=== PATIENT | male | born 1980 | race Caucasian/White ===

== ENCOUNTER 2019-09-29 12:15 | Emergency (ER) | payer MEDICAID, SELFPAY | END 2019-09-29 14:18 | disposition admitted as inpatient to this hospital (09) | LOC: ER 10-03 12:59 | PROVIDERS: Emergency Provider Emergency Medicine | DX: F23 Brief psychotic disorder (principal) | CPT/HCPCS: 99281; 99285 ==

== ENCOUNTER 2019-09-29 12:15 | Inpatient (IN) | payer MEDICAID, SELFPAY ==
[2019-09-29 12:17] VITALS: BP 132/68; PULSE 72; RESP 18; TEMP 36.9; O2SAT 99; BMI 31.2
--- NOTE | 2019-09-29 12:18 | ED_ITS ---
HPI - Psych General: Stated Complaint: PSYCH EVAL Time Seen by Provider: 09/29/19 12:16 Source: patient and EMS Mode of arrival: EMS Limitations: no limitations History of Present Illness: HPI Narrative: 38-year-old male with a history of schizophrenia who is brought here from [place] for admission. Patient seen at [place] and medically cleared there and placed under 96 and was accepted here for admission. Patient seen in the ER to clear for coronavirus. Patient has been having hallucinations but denies any suicidality or homicidality. Patient is currently cooperative Associated symptoms: Reports auditory hallucinations Review of Systems Const: Denies: fever(s), chills, body aches or change in appetite Eyes: Denies: blurry vision or eye discomfort ENMT: Denies: throat pain or dental pain Card: Denies: chest pain Resp: Denies: dyspnea GI: Denies: abdominal pain, nausea, vomiting or diarrhea : Denies: dysuria Musc: Denies: neck pain or back pain Skin/Breast: Denies: rash Neuro: Denies: headache(s) Psych: Reports: paranoia and auditory hallucinations Tonio/Lymph: Denies: easy bruising All/Imm: Denies: urticaria Physical Exam Const: COMMON NORMALS: no acute distress, patient oriented x3 and healthy appearing HENMT: COMMON NORMALS: normocephalic and atraumatic HEAD & SCALP: normocephalic and atraumatic Eye: COMMON NORMALS: Equal, round and reactive pupils present and EOMs intact bilaterally PUPIL: Yes Equal, round and reactive pupils present Neck/C-Spine: COMMON NORMALS: full ROM and supple Chest: COMMONS NORMALS: normal inspection of the chest and normal palpation of entire chest wall Resp: COMMON NORMALS: normal respiratory effort, No retractions, No use of accessory muscles and clear to auscultation bilaterally AUSCULTATION: clear to auscultation bilaterally Cardio: COMMON NORMALS: regular rate, regular rhythm and No murmurs present (Cardio) RATE: regular rate RHYTHM: regular rhythm GI: COMMON NORMALS: Normal to inspection, nondistended, normoactive bowel sounds present, Soft to palpation, non-tender and no masses PALPATION: Yes Soft to palpation Extremity: COMMON NORMALS: normal to inspection and full ROM Neuro: COMMON NORMALS: patient oriented x3, moves all extremities and no focal motor deficits Psych: COMMON NORMALS: mental status grossly normal and cooperative THOUGHT PROCESS: disorganized THOUGHT CONTENT: Yes Hallucination(s) present Skin: COMMON NORMALS: no rashes or lesions noted and no wounds GENERAL SKIN EXAM: no rashes or lesions noted MDM - Psych MDM Narrative: Medical decision making narrative: Presents here from [place] for direct admit to psych unit. Patient is cleared here in the ER and has no signs of coronavirus. Patient stable for admission at this time Discharge Plan Discharge Patient Disposition: Admitted As Inpatient Clinical Impression: Acute psychosis Condition: Stable Coding Level of Care Code ED Computer Technology Trainer for Ese Mosher
[2019-09-29 13:05] VITALS: BP 105/63; PULSE 102; RESP 14; O2SAT 95
[2019-09-29 13:18] VITALS: BP 105/63; PULSE 102; RESP 14; O2SAT 95
[2019-09-29 14:20] VITALS: BMI 26.6
[2019-09-29 14:26] VITALS: BP 118/80; PULSE 112; RESP 18; TEMP 36.6; O2SAT 99
[2019-09-29] MEDS: nicotine 21 mg Patch 1 PATCH TRANSDERMA (14:42)
--- NOTE | 2019-09-29 15:21 | P.HP_ITS ---
Providers/Chief Complaint Admitting Physician: Abdirahman Gary M.D. Primary Care Provider: . Referral Source: Other ([facility]) Chief Complaint: PSYCH EVAL HPI NPU History of Present Illness Zaire Solorzano is a 38 year old male who comes was from [facility] by way of [facility]. He had been on 80 mg ziprasidone twice daily but has been compliant and he has become agitated, hyperverbal delusional and afflicted with flight of ideas and visual hallucinations. He says his mother has some power of deputy attorney general over him, perhaps a guardianship, and he is really upset that he is allowed this to happen. He says it's irrevocable. It is very difficult to glean any meaningful history, as he babbles on in a disjointed, flight of ideas manner. In the verbal white noise I was able to detect a signal that he was in fact on Geodon 80 mg twice daily. I see in the r ecord that he had also been on Plavix 75 mg daily. I charge nurse called his pharmacy and verified his meds. Review of Systems Narrative: Const: Denies: fever(s), chills, body aches or change in appetite Eyes: Denies: blurry vision or eye discomfort ENMT: Denies: throat pain or dental pain Card: Denies: chest pain Resp: Denies: dyspnea GI: Denies: abdominal pain, nausea, vomiting or diarrhea : Denies: dysuria Musc: Denies: neck pain or back pain Skin/Breast: Denies: rash Neuro: Denies: headache(s) Psych: Reports: paranoia and auditory hallucinations Tonio/Lymph: Denies: easy bruising All/Imm: Denies: urticaria Meds NPU Home Medications Medication Instructions Recorded Confirmed Last Taken Type atorvastatin [Lipitor] 80 mg PO DAILY 09/29/19 09/29/19 Unknown History clopidogrel [Plavix] 75 mg PO DAILY 09/29/19 09/29/19 Unknown History ziprasidone HCl [Geodon] 80 mg PO BID 09/29/19 09/29/19 Unknown History Allergies Allergy/AdvReac Type Severity Reaction Status Date / Time latex Allergy Unknown Unknown Verified 09/29/19 12:56 PFSH NPU PFSH: Social History Smoking and tobacco status: current every day smoker Other Psychiatric History: Other Psychiatric History: Not available from the patient's verbal disorganization. Mental Status Exam MSE Comments: This is a 38-year-old male who is disorganized, needs a shower and is quite disheveled. Mood is somewhat elevated but is difficult to determine, as affect is flat. Thought processes are scattered and burdened with racing. There is definite flight of ideas and his speech is pressured. I can see him looking at unseen figures on the wall. Cognitive functions are quite disrupted and the patient is bereft of insight and judgment. He says he does not hallucinate when he takes his Geodon. Vitals/I&O/Wt Last Vital Signs Temp 97.8 F 09/29/19 14:26 Pulse 112 H 09/29/19 14:26 Resp 18 09/29/19 14:26 BP 118/80 09/29/19 14:26 Pulse Ox 99 09/29/19 14:26 Weight last 48 hrs Weight 165 lb Weight 160 lb Physical Exam Narrative: EXAM NARRATIVE: Const: COMMON NORMALS: no acute distress, patient oriented x3 and healthy appearing HENMT: COMMON NORMALS: normocephalic and atraumatic HEAD & SCALP: normocephalic and atraumatic Eye: COMMON NORMALS: Equal, round and reactive pupils present and EOMs intact bilaterally PUPIL: Yes Equal, round and reactive pupils present Neck/C-Spine: COMMON NORMALS: full ROM and supple Chest: COMMONS NORMALS: normal inspection of the chest and normal palpation of entire chest wall Resp: COMMON NORMALS: normal respiratory effort, No retractions, No use of accessory muscles and clear to auscultation bilaterally AUSCULTATION: clear to auscultation bilaterally Cardio: COMMON NORMALS: regular rate, regular rhythm and No murmurs present (Cardio) RATE: regular rate RHYTHM: regular rhythm GI: COMMON NORMALS: Normal to inspection, nondistended, normoactive bowel sounds present, Soft to palpation, non-tender and no masses PALPATION: Yes Soft to palpation Extremity: COMMON NORMALS: normal to inspection and full ROM Neuro: COMMON NORMALS: patient oriented x3, moves all extremities and no focal motor deficits Psych: COMMON NORMALS: mental status grossly normal and cooperative THOUGHT PROCESS: disorganized THOUGHT CONTENT: Yes Hallucination(s) present Skin: COMMON NORMALS: no rashes or lesions noted and no wounds GENERAL SKIN EXAM: no rashes or lesions noted A&P Assessment and plan (1) Acute psychosis: The patient will be reinstated on his meds Status: Acute (2) Schizoaffective disorder, bipolar type: The patient will be reinstated on his medications. Status: Acute Involuntary Hold Information 96 Hour Hold: 96 Hour Involuntary Admission: No Other Hold: Hold End Time: Yes Comments: The patient is under the guardianship of his mother. She may have a DURABLE POWER OF SPREADING MACHINE OPERATOR Attestations NPU Medical Necessity Statement*: This is an acutely psychotic patient. I anticipate 7-10 midnights additional hospitalization. Time Spent in Patient Care: Greater than 35 minutes (>than 50% of time spent in counselling and/or direct pt care on unit) . Interviewing this patient took an inordinate period of time. Also there was review of records. 120 minutes Coding Level of Care Code Acute Costume Cutter for Ese Mosher Diagnoses Acute psychosis F23 Schizoaffective disorder, bipolar type F25.0
[2019-09-29] MEDS: ziprasidone hcl 40 mg Capsule 80 MG PO (16:46)
[2019-09-29 21:58] VITALS: BP 111/73; PULSE 106; RESP 19; TEMP 36.8; O2SAT 97
[2019-09-30 06:00] VITALS: BP 112/75; PULSE 65; RESP 18; TEMP 37; O2SAT 98
[2019-09-30] MEDS: ziprasidone hcl 40 mg Capsule 80 MG PO ×2 (06:39→17:23)
[2019-09-30] MEDS: clopidogrel 75 mg Tablet PO (08:34)
[2019-09-30 12:45] VITALS: BP 120/83; PULSE 128; RESP 18; TEMP 36.7; O2SAT 96
--- NOTE | 2019-09-30 13:41 | P.PN_ITS ---
Subjective NPU Subjective: Interval history: The patient is greatly improved. Overnight he is almost indistinguishable from the general population. His thoughts are clear and he speaks in a measured manner. He is no longer in the throes of laura. It is one of the fastest responses I have seen with any medication. Medications: Reviewed: Yes Medication Review Details: Current Medications Acetaminophen (Tylenol) 650 mg PO Q4H PRN PRN Reason: MILD PAIN Atorvastatin Calcium (Lipitor) 80 mg PO BEDTIME [facility] Last Admin: 09/30/19 00:40 Dose: Not Given Documented by: Benztropine Mesylate (Cogentin) 1 mg PO BID PRN PRN Reason: Mild Extrapyramidal symptoms Camphor/Menthol/Phenol (Blistex) 1 applic TOPICAL Q1H PRN PRN Reason: DRYNESS Clopidogrel Bisulfate (Plavix) 75 mg PO DAILY [facility] Last Admin: 09/30/19 08:34 Dose: 75 mg Documented by: Diphenhydramine HCl (Benadryl) 50 mg IM ONCE PRN PRN Reason: Severe Extrapyramidal Symptoms Diphenhydramine HCl (Benadryl) 50 mg IM Q4H PRN PRN Reason: Severe Aggression Haloperidol (Haldol) 5 mg PO Q4H PRN PRN Reason: AGITATION Haloperidol Lactate (Haldol Inj) 5 mg IM Q4H PRN PRN Reason: Severe Aggression Hydroxyzine Pamoate (Vistaril) 50 mg PO Q6H PRN PRN Reason: ANXIETY Loperamide HCl (Imodium Capsule) 2 mg PO Q6H PRN PRN Reason: DIARRHEA Lorazepam (Ativan) 2 mg IM Q4H PRN PRN Reason: Severe Aggression Nicotine (Nicoderm 21 Mg Patch) 1 patch TRANSDERMA DAILY PRN PRN Reason: NICOTINE WITHDRAWAL Last Admin: 09/29/19 14:42 Dose: 1 patch Documented by: Nicotine Polacrilex (Nicorette) 2 mg BUCCAL Q2H PRN PRN Reason: NICOTINE WITHDRAWAL Olanzapine (Zyprexa Zydis) 5 mg PO Q4H PRN PRN Reason: Agitation/Psychosis Ondansetron HCl (Zofran) 4 mg PO Q6H PRN PRN Reason: NAUSEA AND VOMITING Trazodone HCl (Desyrel) 50 mg PO BEDTIME PRN PRN Reason: SLEEP Ziprasidone (Geodon) 80 mg PO 0700,1700 [facility] Last Admin: 09/30/19 06:39 Dose: 80 mg Documented by: Mental Status Exam MSE Comments: The patient is very different today. He looks his stated age and is not weather-beaten. Mood is euthymic and affect is appropriate. His thought processes are linear and goal-directed. They are not afflicted with racing, blocking or looseness of association. He has a subtle sense of humor. Speech is of normal rate and volume. There is no pressure and we can now hold the dialogue rather than me listening to his monologue. He has judgment and insight now, resuming his awareness that the medicines have something to do with his improvement. He has no suicidal or homicidal ideation plan or intent. Vitals/I&O/Wt Last Vital Signs Temp 98.0 F 09/30/19 12:45 Pulse 128 H 09/30/19 12:45 Resp 18 09/30/19 12:45 BP 120/83 09/30/19 12:45 Pulse Ox 96 09/30/19 12:45 Weight last 48 hrs Weight 165 lb Weight 160 lb A&P Assessment and plan (1) Schizoaffective disorder, bipolar type: The patient will be discharged to an outpatient clinic in his locale. He will need to leave with a supply of his meds. Status: Chronic (2) Acute psychosis: The psychotic episode is largely resolved. Status: Acute Involuntary Hold Information 96 Hour Hold: 96 Hour Involuntary Admission: No Other Hold: Hold End Time: Yes Attestations NPU Medical Necessity Statement*: I anticipate 2-3 midnights additional stay. Time Spent in Patient Care: Greater than 35 minutes (>than 50% of time spent in counselling and/or direct pt care on unit) . 45 minutes Coding Level of Care Code Acute Cushion Installer for [facility] Fwd Diagnoses Schizoaffective disorder, bipolar type F25.0 Acute psychosis F23
[2019-09-30] MEDS: hyDROXYzine 25 mg Capsule 50 MG PO ×2 (15:31→20:09)
--- NOTE | 2019-09-30 15:31 | PC.NURSE ---
Addendum entered by Patience Carin LPN 09/30/19 16:32: MEDICATION EFFECTIVE. NO FURTHER C/O ANXIETY. Original Note: PRN VISTARIL VISTARIL 50MG PO PER PATIENT C/O ANXIETY. WILL CONTINUE TO MONITOR FOR MEDICATION EFFECTIVENESS.
[2019-09-30] MEDS: nicotine 21 mg Patch 1 PATCH TRANSDERMA (16:18)
[2019-09-30] MEDS: metoprolol tartrate 50 mg Tablet PO (17:23)
[2019-09-30] MEDS: atorvastatin 40 mg Tablet 80 MG PO (20:09)
[2019-09-30 22:00] VITALS: BP 112/73; PULSE 89; RESP 20; TEMP 37.2; O2SAT 98
[2019-10-01 06:00] VITALS: BP 101/66; PULSE 73; RESP 17; TEMP 36.7; O2SAT 96
[2019-10-01] MEDS: ziprasidone hcl 40 mg Capsule 80 MG PO ×2 (06:02→16:57)
[2019-10-01] MEDS: metoprolol tartrate 50 mg Tablet PO ×2 (09:00→16:57)
[2019-10-01] MEDS: lisinopril 5 mg Tablet PO (09:00)
[2019-10-01] MEDS: clopidogrel 75 mg Tablet PO (09:01)
[2019-10-01 14:00] VITALS: BP 109/66; PULSE 76; RESP 20; TEMP 36.7; O2SAT 98
[2019-10-01] MEDS: nicotine 21 mg Patch 1 PATCH TRANSDERMA (16:58)
--- NOTE | 2019-10-01 17:08 | PM.NPN ---
Subjective NPU Subjective: Interval history: Zaire presents today, reporting that he had not been taking his medication as he should have. He reports that off of the medication he started being ?way off and showing out? which led to problems he reports. He endorses that this is with his landlord and others. He reports that he had been in [facility], but things did not work out well with that. He reports that he came here hoping to get things together, but he says he may have already messed things up in a way that he is going to be evicted. He reports he has a dog that he needs to get back to. We discussed where his medications are currently, and he reports that when he takes them, that they are effective, but he just made some bad choices in relation to that. We discussed his desire for discharge, and that I would confer with the treatment team in the morning to see if discharge seems appropriate, plus we agreed that we would work with them to make sure that he has an appropriate living arrangement so that he can maintain his wellness. Mental Status Exam MSE Comments: This is a small, well-nourished, well-developed, white male, with adequate dress, grooming, and limited eye contact. No abnormal movements except for mild psychomotor retardation. Cooperative with exam in no acute distress. Speech was decreased rate and volume. Mood described as much better; affect slightly subdued. Thought process, organized. Thought content: patient denied any suicidal or homicidal ideation, there were no delusions reported or noted, patient denied any auditory or visual hallucinations. Attention, concentration, and memory appeared intact but were not formally tested. Alert and oriented times three. Insight and judgment are limited but improving. Vitals/I&O/Wt Last Vital Signs Temp 98.1 F 10/01/19 14:00 Pulse 76 10/01/19 14:00 Resp 20 H 10/01/19 14:00 BP 109/66 10/01/19 14:00 Pulse Ox 98 10/01/19 14:00 Home Medications atorvastatin [Lipitor] 80 mg PO DAILY 09/29/19 [History Confirmed 09/29/19] clopidogrel [Plavix] 75 mg PO DAILY 09/29/19 [History Confirmed 09/29/19] ziprasidone HCl [Geodon] 80 mg PO BID 09/29/19 [History Confirmed 09/29/19] Active Medications Acetaminophen (Tylenol) 650 mg PO Q4H PRN PRN Reason: MILD PAIN Atorvastatin Calcium (Lipitor) 80 mg PO BEDTIME [facility] Last Admin: 09/30/19 20:09 Dose: 80 mg Documented by: Benztropine Mesylate (Cogentin) 1 mg PO BID PRN PRN Reason: Mild Extrapyramidal symptoms Camphor/Menthol/Phenol (Blistex) 1 applic TOPICAL Q1H PRN PRN Reason: DRYNESS Clopidogrel Bisulfate (Plavix) 75 mg PO DAILY [facility] Last Admin: 10/01/19 09:01 Dose: 75 mg Documented by: Diphenhydramine HCl (Benadryl) 50 mg IM ONCE PRN PRN Reason: Severe Extrapyramidal Symptoms Diphenhydramine HCl (Benadryl) 50 mg IM Q4H PRN PRN Reason: Severe Aggression Haloperidol (Haldol) 5 mg PO Q4H PRN PRN Reason: AGITATION Haloperidol Lactate (Haldol Inj) 5 mg IM Q4H PRN PRN Reason: Severe Aggression Hydroxyzine Pamoate (Vistaril) 50 mg PO Q6H PRN PRN Reason: ANXIETY Last Admin: 09/30/19 20:09 Dose: 50 mg Documented by: Lisinopril (Prinivil) 5 mg PO DAILY [facility] Last Admin: 10/01/19 09:00 Dose: 5 mg Documented by: Loperamide HCl (Imodium Capsule) 2 mg PO Q6H PRN PRN Reason: DIARRHEA Lorazepam (Ativan) 2 mg IM Q4H PRN PRN Reason: Severe Aggression Metoprolol Tartrate (Lopressor) 50 mg PO BID [facility] Last Admin: 10/01/19 16:57 Dose: 50 mg Documented by: Nicotine (Nicoderm 21 Mg Patch) 1 patch TRANSDERMA DAILY PRN PRN Reason: NICOTINE WITHDRAWAL Last Admin: 10/01/19 16:58 Dose: 1 patch Documented by: Nicotine Polacrilex (Nicorette) 2 mg BUCCAL Q2H PRN PRN Reason: NICOTINE WITHDRAWAL Olanzapine (Zyprexa Zydis) 5 mg PO Q4H PRN PRN Reason: Agitation/Psychosis Ondansetron HCl (Zofran) 4 mg PO Q6H PRN PRN Reason: NAUSEA AND VOMITING Trazodone HCl (Desyrel) 50 mg PO BEDTIME PRN PRN Reason: SLEEP Ziprasidone (Geodon) 80 mg PO 0700,1700 [facility] Last Admin: 10/01/19 16:57 Dose: 80 mg Documented by: A&P Assessment and plan (1) Schizoaffective disorder, bipolar type: Status: Chronic (2) Acute psychosis: Status: Acute Additional A&P Information This is a 38 year old, white male, with a reported history of schizophrenia and recent non-adherence to his medication, who presents responding quite well to the resumption of the medication. Continue current medication. Continue individual, group, and milieu therapy. Continue q 15-minute checks for safety. Will work with treatment team for possible discharge in the next 48 hours. Involuntary Hold Information 96 Hour Hold: 96 Hour Involuntary Admission: No Other Hold: Hold End Time: Yes Attestations NPU Medical Necessity Statement*: Inpatient hospitalization is medically necessary, and the clinically appropriate intervention at this time. We will continue to monitor medications and evaluate for changes, and make changes as indicated. Likely length of stay one to two days. Coding Level of Care Code Acute Director Maternal Child for [facility] Fwd Diagnoses Schizoaffective disorder, bipolar type F25.0 Acute psychosis F23
[2019-10-01] MEDS: atorvastatin 40 mg Tablet 80 MG PO (21:12)
[2019-10-01 22:00] VITALS: BP 109/66; PULSE 76; RESP 20; TEMP 36.7; O2SAT 98
[2019-10-01 23:11] VITALS: BP 119/85; PULSE 75; RESP 16; TEMP 36.7; O2SAT 96
[2019-10-02 06:00] VITALS: BP 94/67; PULSE 70; RESP 17; TEMP 36.8; O2SAT 96
[2019-10-02] MEDS: ziprasidone hcl 40 mg Capsule 80 MG PO (06:13)
[2019-10-02] MEDS: lisinopril 5 mg Tablet PO (09:04)
[2019-10-02] MEDS: metoprolol tartrate 50 mg Tablet PO (09:04)
[2019-10-02] MEDS: clopidogrel 75 mg Tablet PO (09:04)
[2019-10-02 14:00] VITALS: BP 116/67; PULSE 79; RESP 20; TEMP 37.1; O2SAT 97
--- NOTE | 2019-10-02 15:04 | P.DS_ITS ---
Diagnoses at Discharge Discharge Diagnosis (1) Schizoaffective disorder, bipolar type: Status: Chronic (2) Acute psychosis: Status: Acute Reason for Visit Reason for Visit: PSYCH EVAL Brief History: History of Present Illness Zaire Solorzano is a 38 year old male who comes was from [facility] by way of [facility]. He had been on 80 mg ziprasidone twice daily but has been compliant and he has become agitated, hyperverbal delusional and afflicted with flight of ideas and visual hallucinations. He says his mother has some power of commercial real estate attorney over him, perhaps a guardianship, and he is really upset that he is allowed this to happen. He says it's irrevocable. It is very difficult to glean any meaningful history, as he babbles on in a disjointed, flight of ideas manner. In the verbal white noise I was able to detect a signal that he was in fact on Geodon 80 mg twice daily. I see in the record that he had also been on Plavix 75 mg daily. I charge nurse called his pharmacy and verified his meds. Hospital Course Hospital Course The patient presented to the emergency room with a history of schizophrenia and placed on a 96-hour hold secondary to hallucinations, being off his medication, and odd behavior. He was transferred from [facility] to the emergency room, and then admitted to the neuro-psychiatric unit for definitive treatment of those issues. On the unit, he quickly acclimated to the individual, group, and milieu therapies provided, and was restarted on his medications which he had been non-adherent to, specifically Geodon 80 mg po bid. He responded well to that medication. Prior to the hospitalization, the patient had routine laboratory studies which were within normal limits, except for a few outliers. Additionally, he had a general medical evaluation which was within normal limits and revealed no new acute processes. Discharge Summary At the time of discharge the patient denied all lethality, was absent psychosis, and mood and anxiety were well managed. He was evaluated and deemed to be absent credible lethality, and had achieved the maximum benefit from an inpatient hospitalization, and so he was discharged. Involuntary Hold Information 96 Hour Hold: 96 Hour Involuntary Admission: No Other Hold: Hold End Time: Yes Mental Status Exam MSE Comments: This is a well-nourished, well-developed, white male, with a dequate dress, grooming, and eye contact. No abnormal movements. Cooperative with exam in no acute distress. Speech was normal rate and volume. Mood described as better; affect congruent. Thought process, organized. Thought content: patient denied any suicidal or homicidal ideation, there were no delusions reported or noted, patient denied any auditory or visual hallucinations. Attention, concentration, and memory appeared intact but were not formally tested. Alert and oriented times three. Insight and judgment are improving. Discharge Data Vitals: Last Vital Signs Temp 98.3 F 10/02/19 06:00 Pulse 70 10/02/19 06:00 Resp 17 10/02/19 06:00 BP 94/67 10/02/19 06:00 Pulse Ox 96 10/02/19 06:00 Discharge Plan Discharge Patient Disposition: Home, Self-Care Condition: Stable Prescriptions: New metoprolol tartrate 50 mg Tablet 50 mg PO BID 30 Days Qty: 60 RF: 1 Continued Geodon 80 mg capsule 80 mg PO BID 30 Days Qty: 60 RF: 1 Lipitor 80 mg tablet 80 mg PO DAILY 30 Days Qty: 30 RF: 1 Plavix 75 mg tablet 75 mg PO DAILY 30 Days Qty: 30 RF: 1 Discharge Orders: Discharge Order (Routine); Ordered 10/02/19 Ordered By: Rosales Waldron Referrals: Dr. Jeremi Angel [Other] - 7-10 days (make an appointment for follow-up from this hospitalization as soon as possible. ) [facility] [Other] (you might want to consider outpatient mental health services at [facility] if you are interested in case management, individual therapy or psychiatric medication management. ) Discharge Diet: Regular Discharge Activity: Resume usual activity Patient Instructions: Metoprolol (By mouth), Schizoaffective Disorder (DC) Discharge Date/Time: 10/02/19 17:15 Discharge Attestations NPU Time Spent in Discharge Care*: less than 30 min Specific Discharge Activities: Specific discharge activities: educating patient, discussing with patient case coordinator/social workers/dc planners, documenting/other paperwork and evaluating patient/reviewing data Coding Level of Care Code Acute Configuration Management Analyst for [facility] Fwd Diagnoses Schizoaffective disorder, bipolar type F25.0 Acute psychosis F23
--- NOTE | 2019-10-02 15:24 | PC.SOCIAL ---
Medicaid ride called, trip #[id number], 3 hour window between 3:23pm and 7:23pm Call [phone] for questions about ride.
[2019-10-02 15:28] VITALS: BP 116/67; PULSE 79; RESP 20; TEMP 37.1; O2SAT 97
== END 2019-10-02 17:15 | disposition home or self-care (01) | DRG 885 ==
LOC: ER 12:58 → NP 13:00
DX: F23 Brief psychotic disorder (principal); F25.0 Schizoaffective disorder, bipolar type; Z91.14 Patient's other noncompliance with medication regimen; F17.210 Nicotine dependence, cigarettes, uncomplicated
CPT/HCPCS: 12345; 99281